=== PATIENT | female | born 1955 | race Caucasian/White ===

== ENCOUNTER 2016-08-24 18:06 | Emergency (ER) | payer OTHER ==
[~2016-08-24] VITALS: Ht 154.9 cm; Wt 43.8 kg
[~2016-08-24 18:06] MED LIST: CELEXA10 MG PO; CLARINEX5 MG PO; FLOVENT 22120 INHALA IH; LEVAQUIN PO; LOTENSIN5 MG PO; METRO GEL 1%60 GM TP; MOTRIN800 MG PO; NASONEX17 GM BOTH NARES; PERCOCET 5/31 TABLET PO; PRAVACHOL40 MG PO; SYMBICORT60 INHALAT IH; VENTOLIN HFA18 GM IH
[2016-08-24 19:01] LABS: HEMATOCRIT 40.8 % (36.0-46.0); MCH 32.9 PG (29.0-34.0); MCHC 33.8 G/DL (30.0-36.0); MCV 97.1 FL (83-99); MEAN PLAT.VOLUME 9.5 uM^3 (9.5-12.4); PLATELET COUNT 231 K/uL (156-360); RBC DIS.WIDTH-CV 11.9 % (11.8-14.6); RBC DIS.WIDTH-SD 42.2 % (39-53); WHITE BLOOD COUNT 5.7 K/uL (4.1-10.2)
[2016-08-24 19:12] LABS: CHLORIDE 108 mEq/L (99-109)
[2016-08-24 19:13] LABS: SODIUM 143 mEq/L (136-147)
[2016-08-24 19:14] LABS: GLUCOSE 115 mg/dL (70-99)
[2016-08-24 19:16] LABS: ANION GAP 12 MEQ/L (2-14)
[2016-08-24 19:18] LABS: GFR ESTIMATE (CALCULATED) > 59 mL/min/
[2016-08-24 19:19] LABS: UREA NITROGEN (BUN) 18 mg/dL (9-23)
[2016-08-24 19:22] LABS: TROP-I INTERPRETATION NEGATIVE; TROPONIN-I < 0.01 ng/mL (0.0-0.30)
[2016-08-24 21:12] LABS: TROP-I INTERPRETATION NEGATIVE; TROPONIN-I < 0.01 ng/mL (0.0-0.30)
[2016-08-24] MEDS ORDERED: NAPROSYN500 MG PO (21:27)
[2016-08-24 21:40] VITALS: BP 163/78
== END 2016-08-24 21:50 | disposition home or self-care (01) ==
LOC: EME 18:06
PROVIDERS: Nurse Practitioner Family
DX: R07.89 Other chest pain (principal); F43.9 Reaction to severe stress, unspecified; I10 Essential (primary) hypertension; J45.909 Unspecified asthma, uncomplicated
CPT/HCPCS: 71020; 80048; 84484; 85027; 93005; 99281; 99284

== ENCOUNTER 2016-12-27 20:40 | Emergency (ER) | payer OTHER ==
[~2016-12-27] VITALS: Ht 154.9 cm; Wt 57.6 kg
[~2016-12-27 20:40] MED LIST changes: +NAPROSYN500 MG PO
[2016-12-27 21:02] LABS: ADD MIUA? YES; BILIRUBIN NEGATIVE; BLOOD SMALL; COLOR YELLOW ((YELLOW)); GLUCOSE (STRIP) NEGATIVE; KETONES NEGATIVE; LEUKOCYTES MODERATE; NITRITE NEGATIVE; PROTEIN (STRIP) NEGATIVE; SPECIFIC GRAVITY 1.012 (1.000-1.030); UROBILINOGEN 0.2 MG/DL (0.2-1.0)
[2016-12-27 21:07] LABS: BACTERIA RARE /HPF; EPITHELIAL CELLS RARE /HPF; MUCUS TRACE /LPF; RED BLOOD CELLS NONE SEEN /HPF (0-5); UCUL ADDED? YES; WHITE BLOOD CELLS 15-20 /HPF (0-5)
[2016-12-27] MEDS ORDERED: SKELAXIN800 MG PO (23:46)
[2016-12-28 00:03] VITALS: BP 164/88
== END 2016-12-28 00:04 | disposition home or self-care (01) ==
LOC: EME 20:40
DX: M62.830 Muscle spasm of back (principal)
CPT/HCPCS: 74176; 81003; 87086; 99281; 99285

== ENCOUNTER 2017-03-13 00:56 | Emergency (ER) | payer OTHER ==
[~2017-03-13] VITALS: Ht 154.9 cm; Wt 57.3 kg
[~2017-03-13 00:56] MED LIST changes: +SKELAXIN800 MG PO
[2017-03-13 01:11] LABS: HEMATOCRIT 41.9 % (36.0-46.0); MCH 33.3 PG (29.0-34.0); MCHC 33.9 G/DL (30.0-36.0); MCV 98.1 FL (83-99); MEAN PLAT.VOLUME 9.2 uM^3 (9.5-12.4); PLATELET COUNT 223 K/uL (156-360); RBC DIS.WIDTH-CV 11.4 % (11.8-14.6); RBC DIS.WIDTH-SD 40.9 % (39-53); RED BLOOD COUNT 4.27 M/uL (3.80-5.20)
[2017-03-13 01:21] LABS: CHLORIDE 105 mEq/L (99-109); POTASSIUM 3.9 mEq/L (3.7-5.4); SODIUM 141 mEq/L (136-147)
[2017-03-13 01:23] LABS: GLUCOSE 112 mg/dL (70-99)
[2017-03-13 01:25] LABS: ANION GAP 10 MEQ/L (2-14)
[2017-03-13 01:27] LABS: GFR ESTIMATE (CALCULATED) > 59 mL/min/
[2017-03-13 01:28] LABS: UREA NITROGEN (BUN) 20 mg/dL (9-23)
[2017-03-13] MEDS ORDERED: ANTIVERT25 MG PO (02:03)
[2017-03-13 02:13] VITALS: BP 146/86
== END 2017-03-13 02:14 | disposition home or self-care (01) ==
LOC: EME 00:56
DX: H81.399 Other peripheral vertigo, unspecified ear (principal); I10 Essential (primary) hypertension; J45.909 Unspecified asthma, uncomplicated
CPT/HCPCS: 80048; 85027; 93005; 99281; 99284

== ENCOUNTER 2017-09-18 21:38 | Emergency (ER) | payer OTHER ==
[~2017-09-18] VITALS: Ht 154.9 cm; Wt 58.7 kg
[~2017-09-18 21:38] MED LIST changes: +ANTIVERT25 MG PO
[2017-09-19 00:30] LABS: APPEARANCE CLEAR ((CLEAR)); BILIRUBIN NEGATIVE; BLOOD SMALL; COLOR YELLOW ((YELLOW)); GLUCOSE (STRIP) NEGATIVE; KETONES NEGATIVE; LEUKOCYTES LARGE; NITRITE NEGATIVE; PROTEIN (STRIP) NEGATIVE; SPECIFIC GRAVITY 1.017 (1.000-1.030); UROBILINOGEN 0.2 MG/DL (0.2-1.0)
[2017-09-19 00:48] LABS: BACTERIA NONE SEEN /HPF; EPITHELIAL CELLS RARE /HPF; MUCUS TRACE /LPF; UCUL ADDED? YES; WHITE BLOOD CELLS 40-50 /HPF (0-5)
[2017-09-19] MEDS ORDERED: MACROBID100 MG PO (01:00)
[2017-09-19 01:07] VITALS: BP 160/84
== END 2017-09-19 01:08 | disposition home or self-care (01) ==
LOC: EME 21:38 → RME 21:38
PROVIDERS: Physician Assistant
DX: M54.5 Low back pain (principal); Z88.0 Allergy status to penicillin; Z88.2 Allergy status to sulfonamides; Z88.1 Allergy status to other antibiotic agents; Z88.8 Allergy status to other drugs, medicaments and biological substances
CPT/HCPCS: 81003; 87086; 99281; 99284